=== PATIENT | male | born 1970 | race Hispanic/Latino ===

== ENCOUNTER 2023-01-10 15:12 | Inpatient (IN) | payer MEDICARE ==
[~2023-01-10] VITALS: Ht 170.2 cm; Wt 73.3 kg
[2023-01-10] MEDS ORDERED: ASPIRIN 325MG TAB PO ONE (16:00)
[2023-01-10 16:06] LABS: HEMATOCRIT 46.4 % (42-54); MEAN CORPUSCULAR HEMOGLOBIN 30.5 pg (27.0-33.0); MEAN CORPUSCULAR HGB CONC 31.5 g/dL (32.0-36.0); MEAN CORPUSCULAR VOLUME 96.9 fL (79-99); NUCLEATED RED BLOOD CELLS 2.6 % (0.0-0.19); RED BLOOD CELL COUNT(AUTO) 4.79 MIL/uL (4.50-6.20); RED CELL DISTRIBUTION WIDTH 17.3 % (11.0-15.5); WHITE BLOOD COUNT (AUTO) 9.3 K/uL (4.8-10.8)
[2023-01-10 16:13] LABS: CREATININE 2.1 mg/dL (0.5-1.5); POTASSIUM 5.6 mmol/L (3.5-5.1)
[2023-01-10 16:20] LABS: BILIRUBIN,TOTAL 2.7 mg/dL (0.2-1.0); TOTAL PROTEIN, SERUM 7.7 g/dL (6.0-8.3)
[2023-01-10 16:48] LABS: APPEARANCE,URINE CLEAR (CLEAR); BILIRUBIN,URINE NEGATIVE (NEGATIVE); COLOR,URINE YELLOW (YELLOW); GLUCOSE, URINE (UA) NEGATIVE (NEGATIVE); KETONES,URINE NEGATIVE (NEGATIVE); LEUKOCYTE ESTERASE ,URINE NEGATIVE Leu/uL (NEGATIVE); NITRATE,URINE NEGATIVE (NEGATIVE); OCCULT BLOOD,URINE NEGATIVE (NEGATIVE); PROTEIN,URINE 10 mg/dL (NEGATIVE); UROBILINOGEN,URINE 0.2 mg/dL (0.2-1.0)
[2023-01-10 16:52] LABS: ADD UA MICROSCOPIC YES
[2023-01-10 16:54] LABS: BACTERIA,URINE RARE /HPF (None Seen); RBC,URINE 0-1 /HPF (0-1); SQUAMOUS EPITHELIAL CELL,UR RARE /HPF (0-2)
[2023-01-10 16:57] LABS: ABG HCO3 23.1 mmol/L (21.0-28.0); ABG OXYGEN SATURATION 96.9 % (95.0-99.0); ABG PCO2 34 mmHg (35-48); ABG PH 7.457 (7.35-7.450); PO2, ARTERIAL BG 85.2 mmHg (83.0-108.0); VENT MODE, BG RA (ROOM AIR)
[2023-01-10] MEDS ORDERED: SODIUM ZIRCONIUM CYCLOSILICATE 5 GM POWD.PACK PO SCH (17:00)
[2023-01-10] MEDS ORDERED: SODIUM ZIRCONIUM CYCLOSILICATE 5 GM POWD.PACK PO ONE (19:30)
[2023-01-10] MEDS ORDERED: TORSEMIDE 20 MG TAB PO ONE (19:30)
[2023-01-10] MEDS ORDERED: SPIRONOLACTONE 25 MG TAB PO SCH (21:00)
[2023-01-10] MEDS: ALBUMIN (HUMAN) 25% 50 ML IV SCH (21:35)
[2023-01-10] MEDS ORDERED: HYDROMORPHONE 0.5 MG SYG (0.5MG/0.5ML) IVP ONE (22:00)
[2023-01-11] VITALS (13 sets, daily range): BP systolic 103–123; BP diastolic 72–87; PULSE 69–93; RESP 18; O2SAT 94–95
[2023-01-11] MEDS: ONDANSETRON 4MG INJ IVP PRN (04:02)
[2023-01-11] MEDS ORDERED: SPIRONOLACTONE (04:31)
[2023-01-11] MEDS ORDERED: OMEPRAZOLE (04:31)
[2023-01-11] MEDS ORDERED: ATORVASTATIN (04:31)
[2023-01-11] MEDS ORDERED: AMIODARONE (04:31)
[2023-01-11] MEDS ORDERED: LACTULOSE (04:31)
[2023-01-11] MEDS ORDERED: LEVOTHYROXINE (04:31)
[2023-01-11] MEDS ORDERED: TORSEMIDE (04:31)
[2023-01-11 04:58] LABS: BASOPHILS # (AUTO) 0.02 K/uL (0.00-0.20); BASOPHILS % (AUTO) 0.2 % (0.0-5.0); EOSINOPHILS # (AUTO) 0.02 K/uL (0.00-0.70); EOSINOPHILS % (AUTO) 0.2 % (0.0-8.0); HEMATOCRIT 44.7 % (42-54); IMMATURE GRANULOCYTE ABSOLUTE 0.09 K/uL (0-1); LYMPHOCYTES # (AUTO) 1.1 K/uL (1.0-4.8); LYMPHOCYTES % (AUTO) 10.5 % (21.0-51.0); MEAN CORPUSCULAR HEMOGLOBIN 30.6 pg (27.0-33.0); MEAN CORPUSCULAR HGB CONC 31.3 g/dL (32.0-36.0); MEAN CORPUSCULAR VOLUME 97.6 fL (79-99); MONOCYTES # (AUTO) 1.4 K/uL (0.1-1.0); MONOCYTES % (AUTO) 12.9 % (3.0-13.0); NEUTROPHILS % (AUTO) 75.3 % (40.0-77.0); PLATELET COUNT (AUTO) 197 K/uL (130-400); RED BLOOD CELL COUNT(AUTO) 4.58 MIL/uL (4.50-6.20); RED CELL DISTRIBUTION WIDTH 17.3 % (11.0-15.5); WHITE BLOOD COUNT (AUTO) 10.6 K/uL (4.8-10.8)
[2023-01-11 05:11] LABS: ALBUMIN 3.8 g/dL (3.5-5.0); CREATININE 2.3 mg/dL (0.5-1.5); PHOSPHORUS 6.2 mg/dL (2.5-4.9); POTASSIUM 5.1 mmol/L (3.5-5.1)
[2023-01-11 05:12] LABS: MAGNESIUM 2.4 mg/dL (1.80-2.40); TOTAL PROTEIN, SERUM 7.2 g/dL (6.0-8.3)
[2023-01-11 05:24] LABS: INR 1.31 (0.85-1.15); PROTHROMBIN TIME 14.9 SEC (9.6-11.6)
[2023-01-11 05:25] LABS: PARTIAL THROMBOPLASTIN TIME 27.2 SEC (26.3-35.5)
[2023-01-11 05:30] LABS: B-TYPE NATRIURETIC PEPTIDE 3670 pg/mL (0-100)
[2023-01-11] MEDS: LEVOTHYROXINE 50 MCG TABLET PO SCH (06:24)
[2023-01-11] MEDS: ALBUMIN (HUMAN) 25% 50 ML IV SCH ×3 (06:24→21:53)
[2023-01-11] MEDS: HEPARIN 5,000 UNIT VIAL SQ SCH (06:37)
[2023-01-11] MEDS ORDERED: TORSEMIDE 20 MG TAB PO SCH (09:00)
[2023-01-11] MEDS: FAMOTIDINE 20MG TAB PO SCH (09:21)
[2023-01-11] MEDS: Vitamin B Complex/Vit C/Folic Acid PO SCH (09:22)
[2023-01-11] MEDS: AMIODARONE 200 MG TABLET PO SCH (09:22)
[2023-01-11] MEDS: TAMSULOSIN HCL 0.4 MG CAP.ER.24H PO SCH (09:22)
[2023-01-11] MEDS ORDERED: HYDROMORPHONE 0.5 MG SYG (0.5MG/0.5ML) IVP ONE ×2 (10:00→23:40)
[2023-01-11 14:22] LABS: BODY FLUID RBC 1897 /cu. mm.; BODY FLUID WBC 142 /cu. mm.
[2023-01-11 14:44] LABS: BF LYMPHOCYTE 12 %; BF MACROPHAGE 76; BF MESOTHELIAL 9 %; BF MONOCYTE 1 %; BF TOTAL CELLS COUNTED 100
[2023-01-11 14:45] LABS: TOTAL VOLUME,BODY FLUID 2000 mL
[2023-01-11 14:46] LABS: APPEARANCE BODY FLUID TURBID (CLEAR); COLOR,BODY FLUID YELLOW (LT YELLOW); SPECIMENTYPE,BODY FLUID PLEURAL
[2023-01-11 18:14] LABS: APPEARANCE,URINE CLEAR (CLEAR); BILIRUBIN,URINE NEGATIVE (NEGATIVE); COLOR,URINE YELLOW (YELLOW); GLUCOSE, URINE (UA) NEGATIVE (NEGATIVE); KETONES,URINE NEGATIVE (NEGATIVE); LEUKOCYTE ESTERASE ,URINE NEGATIVE Leu/uL (NEGATIVE); NITRATE,URINE NEGATIVE (NEGATIVE); OCCULT BLOOD,URINE NEGATIVE (NEGATIVE); PROTEIN,URINE NEGATIVE (NEGATIVE); UROBILINOGEN,URINE 0.2 mg/dL (0.2-1.0)
[2023-01-11 18:17] LABS: CHLORIDE,URINE RANDOM 33 mmol/L (110-250); CREATININE,URINE RANDOM 62 mg/dL (30-135); POTASSIUM,URINE RANDOM 30 mmol/L (25-125); SODIUM,URINE RANDOM 42 mmol/l (40-220)
[2023-01-11 18:18] LABS: BACTERIA,URINE RARE /HPF (None Seen); MUCUS,URINE RARE LPF (None Seen); RBC,URINE 0-1 /HPF (0-1); WBC,URINE 0-1 /HPF (0-1)
[2023-01-11] MEDS: TORSEMIDE 20 MG TAB PO SCH (20:29)
[2023-01-12] VITALS (22 sets, daily range): BP systolic 75–108; BP diastolic 40–81; PULSE 55–117; RESP 16–22; O2SAT 94–99
[2023-01-12 03:41] LABS: HEMATOCRIT 38.6 % (42-54); MEAN CORPUSCULAR HEMOGLOBIN 31.1 pg (27.0-33.0); MEAN CORPUSCULAR HGB CONC 33.2 g/dL (32.0-36.0); MEAN CORPUSCULAR VOLUME 93.9 fL (79-99); NUCLEATED RED BLOOD CELLS 3.7 % (0.0-0.19); RED BLOOD CELL COUNT(AUTO) 4.11 MIL/uL (4.50-6.20); RED CELL DISTRIBUTION WIDTH 17.1 % (11.0-15.5); WHITE BLOOD COUNT (AUTO) 9.9 K/uL (4.8-10.8)
[2023-01-12 03:57] LABS: CREATININE 1.9 mg/dL (0.5-1.5); MAGNESIUM 1.9 mg/dL (1.80-2.40); POTASSIUM 4.6 mmol/L (3.5-5.1)
[2023-01-12] MEDS ORDERED: METOPROLOL TARTRATE 1 MG/ML 5ML VIAL IV ONE ×4 (04:29→04:40)
[2023-01-12] MEDS ORDERED: METOPROLOL TARTRATE 1 MG/ML 5ML VIAL IV PRN (04:30)
[2023-01-12 04:31] LABS: ABG BASE EXCESS -2.3 mmol/L (-2.0-3.0); ABG HCO3 20.7 mmol/L (21.0-28.0); ABG OXYGEN SATURATION 99.9 % (95.0-99.0); ABG PCO2 31 mmHg (35-48); ABG PH 7.446 (7.35-7.450); CARBON MONOXIDE 1.9; HHb 0.1; VENT MODE, BG NRB (ROOM AIR)
[2023-01-12 05:30] LABS: CREATINE KINASE, TOTAL 32 U/L (21-232); MYOGLOBIN 69 ng/mL (10-92)
[2023-01-12] MEDS: LEVOTHYROXINE 50 MCG TABLET PO SCH (05:46)
[2023-01-12] MEDS: ALBUMIN (HUMAN) 25% 50 ML IV SCH ×3 (05:46→22:02)
[2023-01-12] MEDS: HEPARIN 5,000 UNIT VIAL SQ SCH ×2 (05:56→17:01)
[2023-01-12] MEDS ORDERED: LACTULOSE 20 GM/30 ML UDCUP PO PRN (09:30)
[2023-01-12] MEDS ORDERED: LACTULOSE 20 GM/30 ML UDCUP PO ONE (10:00)
[2023-01-12] MEDS: Vitamin B Complex/Vit C/Folic Acid PO SCH (10:07)
[2023-01-12] MEDS: FAMOTIDINE 20MG TAB PO SCH (10:07)
[2023-01-12] MEDS: TAMSULOSIN HCL 0.4 MG CAP.ER.24H PO SCH (10:07)
[2023-01-12] MEDS: AMIODARONE 200 MG TABLET PO SCH (10:08)
[2023-01-12] MEDS: TORSEMIDE 20 MG TAB PO SCH ×2 (10:08→20:18)
[2023-01-12] MEDS ORDERED: HYDROMORPHONE 0.5 MG SYG (0.5MG/0.5ML) IVP ONE (11:00)
[2023-01-12] MEDS ORDERED: GLUCAGON 1MG KIT 1 MG ML IM PRN (12:30)
[2023-01-12] MEDS ORDERED: DEXTROSE 50%-WATER 50 ML DISP.SYRIN IV PRN (12:30)
[2023-01-12] MEDS: MAGNESIUM 2GM PREMIX 50ML 50 ML IV PRN (12:59)
[2023-01-12] MEDS ORDERED: PHARMACY COMMUNICATION MISC SCH (13:00)
[2023-01-12] MEDS: SPIRONOLACTONE 25 MG TAB PO SCH (20:18)
[2023-01-12] MEDS ORDERED: ADENOSINE 6MG VIAL IV ONE ×3 (20:43→20:45)
[2023-01-12] MEDS ORDERED: DILTIAZEM 125MG+100 ML NS 125 ML IV PRN (21:00)
[2023-01-12] MEDS ORDERED: AMIODARONE 900MG VIAL 900 MG in DEXTROSE 5%-WATER 200 ML IV PRN (21:00)
[2023-01-12] MEDS ORDERED: AMIODARONE 900MG VIAL 450 MG in DEXTROSE 5%-WATER 250 ML IV PRN (21:00)
[2023-01-12] MEDS ORDERED: AMIODARONE 900MG VIAL 150 MG in DEXTROSE 5%-WATER 100 ML IV PRN (21:00)
[2023-01-12] MEDS ORDERED: AMIODARONE 360MG/200ML D5W(1MG/MIN) IV SCH ×2 (21:30)
[2023-01-12 22:16] LABS: ABG BASE EXCESS -5.4 mmol/L (-2.0-3.0); ABG HCO3 18.2 mmol/L (21.0-28.0); ABG OXYGEN SATURATION 96.8 % (95.0-99.0); ABG PCO2 30 mmHg (35-48); ABG PH 7.396 (7.35-7.450); CARBON MONOXIDE 1.5; HHb 3.1; PO2, ARTERIAL BG 95.7 mmHg (83.0-108.0); VENT MODE, BG NC (ROOM AIR)
[2023-01-12 22:17] LABS: HEMATOCRIT 40.8 % (42-54); MEAN CORPUSCULAR HEMOGLOBIN 31.3 pg (27.0-33.0); MEAN CORPUSCULAR HGB CONC 32.4 g/dL (32.0-36.0); MEAN CORPUSCULAR VOLUME 96.7 fL (79-99); NUCLEATED RED BLOOD CELLS 2.2 % (0.0-0.19); RED BLOOD CELL COUNT(AUTO) 4.22 MIL/uL (4.50-6.20); RED CELL DISTRIBUTION WIDTH 17.5 % (11.0-15.5); WHITE BLOOD COUNT (AUTO) 12.5 K/uL (4.8-10.8)
[2023-01-12] MEDS ORDERED: PHENYLEPHRINE HCL 10 MG/ML 1ML VIAL IV ONE (22:21)
[2023-01-12 22:28] LABS: POTASSIUM 4.5 mmol/L (3.5-5.1)
[2023-01-12 22:32] LABS: ALBUMIN 3.8 g/dL (3.5-5.0); BILIRUBIN,TOTAL 5.2 mg/dL (0.2-1.0); MAGNESIUM 2.3 mg/dL (1.80-2.40); TOTAL PROTEIN, SERUM 6.6 g/dL (6.0-8.3)
[2023-01-12] MEDS: ONDANSETRON 4MG INJ IVP PRN (22:44)
[2023-01-12] MEDS ORDERED: ALBUMIN (HUMAN) 25% 50 ML IV SCH (23:00)
[2023-01-13] VITALS (61 sets, daily range): BP systolic 81–154; BP diastolic 37–71; PULSE 61–83; RESP 7–87; O2SAT 95–98
[2023-01-13] MEDS ORDERED: AMIODARONE 540 MG/D5W 300ML (0.5MG/MIN) IV SCH ×2 (03:00)
[2023-01-13 04:12] LABS: BASOPHILS # (AUTO) 0.03 K/uL (0.00-0.20); BASOPHILS % (AUTO) 0.2 % (0.0-5.0); EOSINOPHILS # (AUTO) 0.01 K/uL (0.00-0.70); EOSINOPHILS % (AUTO) 0.1 % (0.0-8.0); IMMATURE GRANULOCYTE ABSOLUTE 0.26 K/uL (0-1); LYMPHOCYTES # (AUTO) 0.4 K/uL (1.0-4.8); LYMPHOCYTES % (AUTO) 3.2 % (21.0-51.0); MEAN CORPUSCULAR HEMOGLOBIN 30.7 pg (27.0-33.0); MEAN CORPUSCULAR HGB CONC 32.2 g/dL (32.0-36.0); MEAN CORPUSCULAR VOLUME 95.6 fL (79-99); MONOCYTES # (AUTO) 1.4 K/uL (0.1-1.0); MONOCYTES % (AUTO) 10.1 % (3.0-13.0); NEUTROPHILS # (AUTO) 11.6 K/uL (1.8-7.7); NEUTROPHILS % (AUTO) 84.5 % (40.0-77.0); NUCLEATED RED BLOOD CELLS 1.3 % (0.0-0.19); PLATELET COUNT (AUTO) 148 K/uL (130-400); RED BLOOD CELL COUNT(AUTO) 3.87 MIL/uL (4.50-6.20); RED CELL DISTRIBUTION WIDTH 17.4 % (11.0-15.5); WHITE BLOOD COUNT (AUTO) 13.7 K/uL (4.8-10.8)
[2023-01-13 04:23] LABS: CREATININE 1.9 mg/dL (0.5-1.5); MAGNESIUM 2.1 mg/dL (1.80-2.40); PHOSPHORUS 3.5 mg/dL (2.5-4.9); POTASSIUM 4.1 mmol/L (3.5-5.1)
[2023-01-13] MEDS: LEVOTHYROXINE 50 MCG TABLET PO SCH (05:31)
[2023-01-13] MEDS: HEPARIN 5,000 UNIT VIAL SQ SCH ×2 (05:32→16:47)
[2023-01-13] MEDS: ONDANSETRON 4MG INJ IVP PRN (06:02)
[2023-01-13] MEDS: Vitamin B Complex/Vit C/Folic Acid PO SCH (07:48)
[2023-01-13] MEDS: FAMOTIDINE 20MG TAB PO SCH (07:48)
[2023-01-13] MEDS: TORSEMIDE 20 MG TAB PO SCH ×2 (07:48→20:38)
[2023-01-13] MEDS: AMIODARONE 200 MG TABLET PO SCH (07:48)
[2023-01-13] MEDS: VERQUVO 2.5 MG PO SCH (07:49)
[2023-01-13] MEDS: SPIRONOLACTONE 25 MG TAB PO SCH ×2 (07:51→20:38)
[2023-01-13] MEDS: METOPROLOL TARTRATE 25 MG TAB PO SCH ×2 (09:00→21:00)
[2023-01-13] MEDS: TAMSULOSIN HCL 0.4 MG CAP.ER.24H PO SCH (09:00)
[2023-01-13] MEDS: LACTULOSE 20 GM/30 ML UDCUP PO SCH (12:27)
[2023-01-13] MEDS: ALPRAZOLAM 0.5 MG TABLET PO PRN (12:27)
[2023-01-13] MEDS: SODIUM CHLORIDE 1,000 MG TAB PO SCH ×2 (12:27→20:38)
[2023-01-13 13:18] LABS: INR 1.37 (0.85-1.15); PROTHROMBIN TIME 15.6 SEC (9.6-11.6)
[2023-01-13 13:19] LABS: PARTIAL THROMBOPLASTIN TIME 40.1 SEC (26.3-35.5)
[2023-01-13 16:23] LABS: AMPHET/METH SCREEN,URINE NEGATIVE (NEGATIVE); BARBITURATE SCREEN, URINE NEGATIVE (NEGATIVE); BENZODIAZEPINES SCREEN,URINE NEGATIVE (NEGATIVE); CANNABINOID SCREEN,URINE NEGATIVE (NEGATIVE); COCAINE SCREEN,URINE NEGATIVE (NEGATIVE); OPIATE SCREEN,URINE NEGATIVE (NEGATIVE); PHENCYCLIDINE SCREEN,URINE NEGATIVE (NEGATIVE)
[2023-01-13] MEDS: CEFEPIME HCL 2 GM VIAL IVPB SCH (16:47)
[2023-01-13] MEDS: DOXYCYCLINE HYCLATE 100 MG TABLET PO SCH ×2 (16:47→20:39)
[2023-01-13 17:35] LABS: SARS-CoV-2, RNA, NAAT NEGATIVE SARS CoV-2 (NEGATIVE)
[2023-01-13] MEDS: PHENYLEPHRINE HCL 10 MG in 0.9% NACL 250ML 250 ML IV PRN ×2 (18:20→20:18)
[2023-01-14] VITALS (96 sets, daily range): BP systolic 75–119; BP diastolic 27–81; PULSE 59–85; RESP 12–80; O2SAT 97–98
[2023-01-14] MEDS: ACETAMINOPHEN 325 MG TAB PO PRN ×3 (03:56→20:28)
[2023-01-14] MEDS: CEFEPIME HCL 2 GM VIAL IVPB SCH ×2 (03:57→16:18)
[2023-01-14 04:00] LABS: BASOPHILS # (AUTO) 0.03 K/uL (0.00-0.20); BASOPHILS % (AUTO) 0.2 % (0.0-5.0); EOSINOPHILS # (AUTO) 0.07 K/uL (0.00-0.70); EOSINOPHILS % (AUTO) 0.6 % (0.0-8.0); HEMATOCRIT 35.4 % (42-54); IMMATURE GRANULOCYTE ABSOLUTE 0.18 K/uL (0-1); LYMPHOCYTES # (AUTO) 0.5 K/uL (1.0-4.8); LYMPHOCYTES % (AUTO) 3.6 % (21.0-51.0); MEAN CORPUSCULAR HEMOGLOBIN 30.9 pg (27.0-33.0); MEAN CORPUSCULAR HGB CONC 32.8 g/dL (32.0-36.0); MEAN CORPUSCULAR VOLUME 94.1 fL (79-99); MONOCYTES # (AUTO) 1.1 K/uL (0.1-1.0); MONOCYTES % (AUTO) 8.9 % (3.0-13.0); NEUTROPHILS # (AUTO) 10.9 K/uL (1.8-7.7); NEUTROPHILS % (AUTO) 85.3 % (40.0-77.0); NUCLEATED RED BLOOD CELLS 1.1 % (0.0-0.19); PLATELET COUNT (AUTO) 147 K/uL (130-400); RED BLOOD CELL COUNT(AUTO) 3.76 MIL/uL (4.50-6.20); RED CELL DISTRIBUTION WIDTH 17.3 % (11.0-15.5); WHITE BLOOD COUNT (AUTO) 12.7 K/uL (4.8-10.8)
[2023-01-14 04:17] LABS: ALBUMIN 2.8 g/dL (3.5-5.0); BILIRUBIN,TOTAL 3.7 mg/dL (0.2-1.0); CREATININE 1.6 mg/dL (0.5-1.5); MAGNESIUM 2.1 mg/dL (1.80-2.40); PHOSPHORUS 3.2 mg/dL (2.5-4.9); POTASSIUM 3.8 mmol/L (3.5-5.1); TOTAL PROTEIN, SERUM 5.8 g/dL (6.0-8.3)
[2023-01-14] MEDS: HEPARIN 5,000 UNIT VIAL SQ SCH ×2 (05:00→16:19)
[2023-01-14] MEDS: LEVOTHYROXINE 50 MCG TABLET PO SCH (05:37)
[2023-01-14] MEDS: DOXYCYCLINE HYCLATE 100 MG TABLET PO SCH ×2 (08:40→20:16)
[2023-01-14] MEDS: Vitamin B Complex/Vit C/Folic Acid PO SCH (08:41)
[2023-01-14] MEDS: FAMOTIDINE 20MG TAB PO SCH (08:41)
[2023-01-14] MEDS: TAMSULOSIN HCL 0.4 MG CAP.ER.24H PO SCH (08:42)
[2023-01-14] MEDS: SODIUM CHLORIDE 1,000 MG TAB PO SCH ×2 (08:42→20:16)
[2023-01-14] MEDS: PREDNISONE 20 MG TABLET PO SCH (08:42)
[2023-01-14] MEDS: AMIODARONE 200 MG TABLET PO SCH (08:42)
[2023-01-14] MEDS: TORSEMIDE 20 MG TAB PO SCH ×2 (08:42→20:16)
[2023-01-14] MEDS: LACTULOSE 20 GM/30 ML UDCUP PO SCH (08:42)
[2023-01-14] MEDS: SPIRONOLACTONE 25 MG TAB PO SCH ×2 (08:42→20:15)
[2023-01-14] MEDS: VERQUVO 2.5 MG PO SCH (08:43)
[2023-01-14] MEDS: THIAMINE HCL 100 MG/ML 2ML VIAL IVP SCH (08:43)
[2023-01-14] MEDS: METOPROLOL TARTRATE 25 MG TAB PO SCH ×2 (08:53→20:04)
[2023-01-14] MEDS: MIDODRINE HCL 5 MG TABLET PO SCH ×3 (09:42→20:15)
[2023-01-14] MEDS: PHENYLEPHRINE HCL 10 MG in 0.9% NACL 250ML 250 ML IV PRN (15:21)
[2023-01-15] VITALS (35 sets, daily range): BP systolic 72–115; BP diastolic 36–76; PULSE 56–64; RESP 10–30; O2SAT 93–99
[2023-01-15] MEDS: CEFEPIME HCL 2 GM VIAL IVPB SCH ×2 (05:30→16:07)
[2023-01-15] MEDS: LEVOTHYROXINE 50 MCG TABLET PO SCH (05:33)
[2023-01-15] MEDS: HEPARIN 5,000 UNIT VIAL SQ SCH ×2 (05:33→16:09)
[2023-01-15] MEDS: ALPRAZOLAM 0.5 MG TABLET PO PRN (06:06)
[2023-01-15 07:51] LABS: HEMATOCRIT 36.2 % (42-54); MEAN CORPUSCULAR HEMOGLOBIN 30.1 pg (27.0-33.0); MEAN CORPUSCULAR HGB CONC 30.9 g/dL (32.0-36.0); MEAN CORPUSCULAR VOLUME 97.3 fL (79-99); NUCLEATED RED BLOOD CELLS 0.4 % (0.0-0.19); PLATELET COUNT (AUTO) 108 K/uL (130-400); RED BLOOD CELL COUNT(AUTO) 3.72 MIL/uL (4.50-6.20); RED CELL DISTRIBUTION WIDTH 17.7 % (11.0-15.5); WHITE BLOOD COUNT (AUTO) 12.4 K/uL (4.8-10.8)
[2023-01-15 07:57] LABS: CREATININE 1.4 mg/dL (0.5-1.5); MAGNESIUM 1.8 mg/dL (1.80-2.40); POTASSIUM 4.3 mmol/L (3.5-5.1)
[2023-01-15 08:24] LABS: ALBUMIN 2.6 g/dL (3.5-5.0); BILIRUBIN,TOTAL 2.6 mg/dL (0.2-1.0); CREATININE 1.4 mg/dL (0.5-1.5); POTASSIUM 4.3 mmol/L (3.5-5.1); TOTAL PROTEIN, SERUM 5.9 g/dL (6.0-8.3)
[2023-01-15] MEDS: THIAMINE HCL 100 MG/ML 2ML VIAL IVP SCH (08:44)
[2023-01-15] MEDS: SPIRONOLACTONE 25 MG TAB PO SCH ×2 (08:45→20:09)
[2023-01-15] MEDS: PREDNISONE 20 MG TABLET PO SCH (08:45)
[2023-01-15] MEDS: LACTULOSE 20 GM/30 ML UDCUP PO SCH (08:45)
[2023-01-15] MEDS: TORSEMIDE 20 MG TAB PO SCH ×2 (08:46→20:10)
[2023-01-15] MEDS: DOXYCYCLINE HYCLATE 100 MG TABLET PO SCH ×2 (08:46→20:10)
[2023-01-15] MEDS: TAMSULOSIN HCL 0.4 MG CAP.ER.24H PO SCH (08:47)
[2023-01-15] MEDS: METOPROLOL TARTRATE 25 MG TAB PO SCH ×2 (08:47→20:10)
[2023-01-15] MEDS: FAMOTIDINE 20MG TAB PO SCH (08:49)
[2023-01-15] MEDS: AMIODARONE 200 MG TABLET PO SCH (08:49)
[2023-01-15] MEDS: Vitamin B Complex/Vit C/Folic Acid PO SCH (08:49)
[2023-01-15] MEDS: MIDODRINE HCL 5 MG TABLET PO SCH ×3 (08:49→20:11)
[2023-01-15] MEDS: SODIUM CHLORIDE 1,000 MG TAB PO SCH ×2 (08:50→20:10)
[2023-01-15] MEDS: VERQUVO 2.5 MG PO SCH (08:52)
[2023-01-15] MEDS: MAGNESIUM 2GM PREMIX 50ML 50 ML IV PRN (13:33)
[2023-01-16] VITALS (7 sets, daily range): BP systolic 95–144; BP diastolic 66–85; PULSE 61–65; RESP 16–20; O2SAT 98–100
[2023-01-16] MEDS: ALPRAZOLAM 0.5 MG TABLET PO PRN ×2 (02:02→21:20)
[2023-01-16] MEDS: CEFEPIME HCL 2 GM VIAL IVPB SCH ×2 (02:02→16:47)
[2023-01-16 04:39] LABS: BASOPHILS # (AUTO) 0.02 K/uL (0.00-0.20); BASOPHILS % (AUTO) 0.2 % (0.0-5.0); HEMATOCRIT 35.7 % (42-54); IMMATURE GRANULOCYTE ABSOLUTE 0.08 K/uL (0-1); LYMPHOCYTES # (AUTO) 0.3 K/uL (1.0-4.8); LYMPHOCYTES % (AUTO) 2.7 % (21.0-51.0); MEAN CORPUSCULAR HEMOGLOBIN 30.7 pg (27.0-33.0); MEAN CORPUSCULAR HGB CONC 32.5 g/dL (32.0-36.0); MEAN CORPUSCULAR VOLUME 94.4 fL (79-99); MONOCYTES # (AUTO) 0.7 K/uL (0.1-1.0); MONOCYTES % (AUTO) 7.6 % (3.0-13.0); NEUTROPHILS # (AUTO) 8.6 K/uL (1.8-7.7); NEUTROPHILS % (AUTO) 88.7 % (40.0-77.0); NUCLEATED RED BLOOD CELLS 0.8 % (0.0-0.19); PLATELET COUNT (AUTO) 100 K/uL (130-400); RED BLOOD CELL COUNT(AUTO) 3.78 MIL/uL (4.50-6.20); RED CELL DISTRIBUTION WIDTH 17.6 % (11.0-15.5); WHITE BLOOD COUNT (AUTO) 9.7 K/uL (4.8-10.8)
[2023-01-16 04:59] LABS: ALBUMIN 2.8 g/dL (3.5-5.0); BILIRUBIN,TOTAL 1.6 mg/dL (0.2-1.0); CREATININE 1.4 mg/dL (0.5-1.5); MAGNESIUM 2.1 mg/dL (1.80-2.40); POTASSIUM 4.3 mmol/L (3.5-5.1); TOTAL PROTEIN, SERUM 6.4 g/dL (6.0-8.3)
[2023-01-16] MEDS: LEVOTHYROXINE 50 MCG TABLET PO SCH (05:39)
[2023-01-16] MEDS: HEPARIN 5,000 UNIT VIAL SQ SCH ×2 (05:40→16:48)
[2023-01-16] MEDS: ACETAMINOPHEN 325 MG TAB PO PRN (05:40)
[2023-01-16] MEDS: MIDODRINE HCL 5 MG TABLET PO SCH ×3 (08:03→20:58)
[2023-01-16] MEDS: Vitamin B Complex/Vit C/Folic Acid PO SCH (08:03)
[2023-01-16] MEDS: PREDNISONE 20 MG TABLET PO SCH (08:03)
[2023-01-16] MEDS: SPIRONOLACTONE 25 MG TAB PO SCH ×2 (08:03→20:59)
[2023-01-16] MEDS: TORSEMIDE 20 MG TAB PO SCH ×2 (08:03→20:58)
[2023-01-16] MEDS: SODIUM CHLORIDE 1,000 MG TAB PO SCH ×2 (08:03→20:58)
[2023-01-16] MEDS: DOXYCYCLINE HYCLATE 100 MG TABLET PO SCH ×2 (08:04→20:59)
[2023-01-16] MEDS: AMIODARONE 200 MG TABLET PO SCH (08:04)
[2023-01-16] MEDS: TAMSULOSIN HCL 0.4 MG CAP.ER.24H PO SCH (08:05)
[2023-01-16] MEDS: LACTULOSE 20 GM/30 ML UDCUP PO SCH (08:05)
[2023-01-16] MEDS: METOPROLOL TARTRATE 25 MG TAB PO SCH ×2 (08:05→20:59)
[2023-01-16] MEDS: THIAMINE HCL 100 MG/ML 2ML VIAL IVP SCH (08:05)
[2023-01-16] MEDS: FAMOTIDINE 20MG TAB PO SCH (08:05)
[2023-01-16] MEDS: VERQUVO 2.5 MG PO SCH (08:06)
[2023-01-17] VITALS (9 sets, daily range): BP systolic 92–111; BP diastolic 68–82; PULSE 60–68; RESP 14–19; O2SAT 98–100
[2023-01-17] MEDS: CEFEPIME HCL 2 GM VIAL IVPB SCH ×2 (03:39→17:58)
[2023-01-17] MEDS: HEPARIN 5,000 UNIT VIAL SQ SCH ×2 (03:39→17:59)
[2023-01-17] MEDS: LEVOTHYROXINE 50 MCG TABLET PO SCH ×2 (05:49→08:13)
[2023-01-17] MEDS: ACETAMINOPHEN 325 MG TAB PO PRN (05:49)
[2023-01-17] MEDS: LACTULOSE 20 GM/30 ML UDCUP PO SCH (08:10)
[2023-01-17] MEDS: SPIRONOLACTONE 25 MG TAB PO SCH ×2 (08:11→21:47)
[2023-01-17] MEDS: DOXYCYCLINE HYCLATE 100 MG TABLET PO SCH ×2 (08:11→21:47)
[2023-01-17] MEDS: VERQUVO 2.5 MG PO SCH (08:11)
[2023-01-17] MEDS: TORSEMIDE 20 MG TAB PO SCH ×2 (08:12→21:47)
[2023-01-17] MEDS: Vitamin B Complex/Vit C/Folic Acid PO SCH (08:12)
[2023-01-17] MEDS: METOPROLOL TARTRATE 25 MG TAB PO SCH ×2 (08:12→21:47)
[2023-01-17] MEDS: SODIUM CHLORIDE 1,000 MG TAB PO SCH ×2 (08:12→21:47)
[2023-01-17] MEDS: AMIODARONE 200 MG TABLET PO SCH (08:12)
[2023-01-17] MEDS: FAMOTIDINE 20MG TAB PO SCH (08:12)
[2023-01-17] MEDS: TAMSULOSIN HCL 0.4 MG CAP.ER.24H PO SCH (08:12)
[2023-01-17] MEDS: MIDODRINE HCL 5 MG TABLET PO SCH ×3 (08:44→21:47)
[2023-01-17] MEDS: ALPRAZOLAM 0.5 MG TABLET PO PRN (21:59)
[2023-01-18] VITALS (7 sets, daily range): BP systolic 94–114; BP diastolic 59–76; PULSE 67–86; RESP 16–20; O2SAT 98–100
[2023-01-18] MEDS: CEFEPIME HCL 2 GM VIAL IVPB SCH ×2 (03:41→16:58)
[2023-01-18] MEDS: HEPARIN 5,000 UNIT VIAL SQ SCH ×2 (03:42→17:00)
[2023-01-18] MEDS: MIDODRINE HCL 5 MG TABLET PO SCH ×3 (05:25→21:10)
[2023-01-18] MEDS: LEVOTHYROXINE 50 MCG TABLET PO SCH (05:25)
[2023-01-18 05:48] LABS: BASOPHILS # (AUTO) 0.01 K/uL (0.00-0.20); BASOPHILS % (AUTO) 0.2 % (0.0-5.0); EOSINOPHILS # (AUTO) 0.05 K/uL (0.00-0.70); EOSINOPHILS % (AUTO) 0.8 % (0.0-8.0); HEMATOCRIT 38.7 % (42-54); IMMATURE GRANULOCYTE ABSOLUTE 0.08 K/uL (0-1); LYMPHOCYTES # (AUTO) 0.8 K/uL (1.0-4.8); LYMPHOCYTES % (AUTO) 11.5 % (21.0-51.0); MEAN CORPUSCULAR HEMOGLOBIN 30.4 pg (27.0-33.0); MEAN CORPUSCULAR HGB CONC 31.5 g/dL (32.0-36.0); MEAN CORPUSCULAR VOLUME 96.5 fL (79-99); MONOCYTES # (AUTO) 0.8 K/uL (0.1-1.0); NEUTROPHILS # (AUTO) 4.8 K/uL (1.8-7.7); NEUTROPHILS % (AUTO) 74.3 % (40.0-77.0); NUCLEATED RED BLOOD CELLS 0.6 % (0.0-0.19); PLATELET COUNT (AUTO) 122 K/uL (130-400); RED BLOOD CELL COUNT(AUTO) 4.01 MIL/uL (4.50-6.20); WHITE BLOOD COUNT (AUTO) 6.5 K/uL (4.8-10.8)
[2023-01-18 06:00] LABS: CREATININE 1.6 mg/dL (0.5-1.5); POTASSIUM 3.8 mmol/L (3.5-5.1)
[2023-01-18] MEDS: SPIRONOLACTONE 25 MG TAB PO SCH ×2 (08:40→21:10)
[2023-01-18] MEDS: SODIUM CHLORIDE 1,000 MG TAB PO SCH ×2 (08:40→21:10)
[2023-01-18] MEDS: AMIODARONE 200 MG TABLET PO SCH (08:40)
[2023-01-18] MEDS: LACTULOSE 20 GM/30 ML UDCUP PO SCH (08:40)
[2023-01-18] MEDS: TORSEMIDE 20 MG TAB PO SCH ×2 (08:40→21:10)
[2023-01-18] MEDS: TAMSULOSIN HCL 0.4 MG CAP.ER.24H PO SCH (08:40)
[2023-01-18] MEDS: FAMOTIDINE 20MG TAB PO SCH (08:40)
[2023-01-18] MEDS: DOXYCYCLINE HYCLATE 100 MG TABLET PO SCH ×2 (08:40→21:10)
[2023-01-18] MEDS: METOPROLOL TARTRATE 25 MG TAB PO SCH ×2 (08:40→21:10)
[2023-01-18] MEDS: Vitamin B Complex/Vit C/Folic Acid PO SCH (08:40)
[2023-01-18] MEDS: VERQUVO 2.5 MG PO SCH (08:42)
[2023-01-18] MEDS: ACETAMINOPHEN 325 MG TAB PO PRN ×2 (11:08→21:11)
[2023-01-18] MEDS: ALPRAZOLAM 0.5 MG TABLET PO PRN (21:10)
[2023-01-19] VITALS (7 sets, daily range): BP systolic 87–102; BP diastolic 55–68; PULSE 71–88; RESP 16–20; O2SAT 98
[2023-01-19] MEDS: HEPARIN 5,000 UNIT VIAL SQ SCH ×2 (04:29→17:49)
[2023-01-19] MEDS: CEFEPIME HCL 2 GM VIAL IVPB SCH ×2 (04:29→17:48)
[2023-01-19] MEDS: LEVOTHYROXINE 50 MCG TABLET PO SCH (04:29)
[2023-01-19] MEDS: MIDODRINE HCL 5 MG TABLET PO SCH ×3 (04:30→22:20)
[2023-01-19] MEDS: LACTULOSE 20 GM/30 ML UDCUP PO SCH (09:44)
[2023-01-19] MEDS: AMIODARONE 200 MG TABLET PO SCH (09:44)
[2023-01-19] MEDS: FAMOTIDINE 20MG TAB PO SCH (09:45)
[2023-01-19] MEDS: TORSEMIDE 20 MG TAB PO SCH ×2 (09:45→19:43)
[2023-01-19] MEDS: SPIRONOLACTONE 25 MG TAB PO SCH ×2 (09:45→19:43)
[2023-01-19] MEDS: SODIUM CHLORIDE 1,000 MG TAB PO SCH ×2 (09:45→19:43)
[2023-01-19] MEDS: Vitamin B Complex/Vit C/Folic Acid PO SCH (09:45)
[2023-01-19] MEDS: DOXYCYCLINE HYCLATE 100 MG TABLET PO SCH ×2 (09:47→19:43)
[2023-01-19] MEDS: METOPROLOL TARTRATE 25 MG TAB PO SCH ×2 (09:47→19:43)
[2023-01-19] MEDS: VERQUVO 2.5 MG PO SCH (09:47)
[2023-01-19] MEDS: TAMSULOSIN HCL 0.4 MG CAP.ER.24H PO SCH (09:47)
[2023-01-19] MEDS: ACETAMINOPHEN 325 MG TAB PO PRN ×2 (10:52→19:58)
[2023-01-19 12:55] LABS: CREATININE 1.3 mg/dL (0.5-1.5); POTASSIUM 3.6 mmol/L (3.5-5.1)
[2023-01-19] MEDS: NITROGLYCERIN 30 GM TUBE TD SCH (19:37)
[2023-01-19] MEDS: MAGNESIUM 2GM PREMIX 50ML 50 ML IV PRN (20:42)
[2023-01-20] VITALS (10 sets, daily range): BP systolic 84–96; BP diastolic 53–66; PULSE 67–82; RESP 18–20; O2SAT 98
[2023-01-20 03:54] LABS: BASOPHILS # (AUTO) 0.02 K/uL (0.00-0.20); BASOPHILS % (AUTO) 0.2 % (0.0-5.0); EOSINOPHILS # (AUTO) 0.08 K/uL (0.00-0.70); EOSINOPHILS % (AUTO) 0.8 % (0.0-8.0); HEMATOCRIT 38.6 % (42-54); IMMATURE GRANULOCYTE ABSOLUTE 0.17 K/uL (0-1); LYMPHOCYTES # (AUTO) 0.7 K/uL (1.0-4.8); LYMPHOCYTES % (AUTO) 6.4 % (21.0-51.0); MEAN CORPUSCULAR HEMOGLOBIN 30.2 pg (27.0-33.0); MEAN CORPUSCULAR HGB CONC 31.6 g/dL (32.0-36.0); MEAN CORPUSCULAR VOLUME 95.5 fL (79-99); MONOCYTES # (AUTO) 0.8 K/uL (0.1-1.0); MONOCYTES % (AUTO) 7.9 % (3.0-13.0); NEUTROPHILS # (AUTO) 8.4 K/uL (1.8-7.7); PLATELET COUNT (AUTO) 136 K/uL (130-400); RED BLOOD CELL COUNT(AUTO) 4.04 MIL/uL (4.50-6.20); WHITE BLOOD COUNT (AUTO) 10.2 K/uL (4.8-10.8)
[2023-01-20 04:04] LABS: ALBUMIN 2.4 g/dL (3.5-5.0); BILIRUBIN,TOTAL 2.4 mg/dL (0.2-1.0); CREATININE 1.3 mg/dL (0.5-1.5); MAGNESIUM 1.9 mg/dL (1.80-2.40); PHOSPHORUS 2.7 mg/dL (2.5-4.9); POTASSIUM 3.1 mmol/L (3.5-5.1); TOTAL PROTEIN, SERUM 5.8 g/dL (6.0-8.3)
[2023-01-20] MEDS: CEFEPIME HCL 2 GM VIAL IVPB SCH ×2 (04:26→17:42)
[2023-01-20] MEDS: HEPARIN 5,000 UNIT VIAL SQ SCH ×2 (04:33→18:26)
[2023-01-20] MEDS: MIDODRINE HCL 5 MG TABLET PO SCH ×3 (05:08→22:18)
[2023-01-20] MEDS: LEVOTHYROXINE 50 MCG TABLET PO SCH (05:08)
[2023-01-20] MEDS: MAGNESIUM 2GM PREMIX 50ML 50 ML IV PRN (05:09)
[2023-01-20] MEDS ORDERED: POTASSIUM CHLORIDE 20MEQ/100ML 100 ML IV PRN (05:30)
[2023-01-20] MEDS: KCL 20 MEQ ERTAB PO PRN ×2 (05:32→19:57)
[2023-01-20] MEDS: SPIRONOLACTONE 25 MG TAB PO SCH ×2 (07:40→19:57)
[2023-01-20] MEDS: LACTULOSE 20 GM/30 ML UDCUP PO SCH (07:41)
[2023-01-20] MEDS: TAMSULOSIN HCL 0.4 MG CAP.ER.24H PO SCH (07:41)
[2023-01-20] MEDS: DOXYCYCLINE HYCLATE 100 MG TABLET PO SCH ×2 (07:41→19:57)
[2023-01-20] MEDS: Vitamin B Complex/Vit C/Folic Acid PO SCH (07:41)
[2023-01-20] MEDS: ACETAMINOPHEN 325 MG TAB PO PRN ×3 (07:41→20:00)
[2023-01-20] MEDS: TORSEMIDE 20 MG TAB PO SCH ×2 (07:42→19:58)
[2023-01-20] MEDS: FAMOTIDINE 20MG TAB PO SCH (07:42)
[2023-01-20] MEDS: SODIUM CHLORIDE 1,000 MG TAB PO SCH ×2 (07:42→19:57)
[2023-01-20] MEDS: AMIODARONE 200 MG TABLET PO SCH (07:42)
[2023-01-20] MEDS: METOPROLOL TARTRATE 25 MG TAB PO SCH ×2 (07:42→19:58)
[2023-01-20] MEDS: VERQUVO 2.5 MG PO SCH (07:43)
[2023-01-20] MEDS: NITROGLYCERIN 30 GM TUBE TD SCH ×2 (07:45→19:58)
[2023-01-20] MEDS: POTASSIUM CHLORIDE 10% ELIXIR 20 MEQ/15 ML UDCUP PO PRN (07:52)
[2023-01-20] MEDS ORDERED: METO25 PO (15:43)
[2023-01-20] MEDS ORDERED: LEVO50TA4 PO (15:43)
[2023-01-20] MEDS ORDERED: TORS20TA4 PO (15:43)
[2023-01-20] MEDS ORDERED: SPIR25TA6 PO (15:43)
[2023-01-20] MEDS ORDERED: AMIO200T44 PO (15:43)
[2023-01-21] VITALS (7 sets, daily range): BP systolic 83–97; BP diastolic 54–75; PULSE 72–82; RESP 16–18; O2SAT 97–98
[2023-01-21] MEDS: CEFEPIME HCL 2 GM VIAL IVPB SCH ×2 (04:38→14:57)
[2023-01-21] MEDS: HEPARIN 5,000 UNIT VIAL SQ SCH ×2 (04:39→15:05)
[2023-01-21 05:18] LABS: BASOPHILS # (AUTO) 0.03 K/uL (0.00-0.20); BASOPHILS % (AUTO) 0.3 % (0.0-5.0); EOSINOPHILS # (AUTO) 0.04 K/uL (0.00-0.70); EOSINOPHILS % (AUTO) 0.4 % (0.0-8.0); IMMATURE GRANULOCYTE ABSOLUTE 0.15 K/uL (0-1); LYMPHOCYTES # (AUTO) 0.8 K/uL (1.0-4.8); MEAN CORPUSCULAR HEMOGLOBIN 30.5 pg (27.0-33.0); MEAN CORPUSCULAR HGB CONC 32.8 g/dL (32.0-36.0); MONOCYTES # (AUTO) 0.6 K/uL (0.1-1.0); MONOCYTES % (AUTO) 6.9 % (3.0-13.0); NEUTROPHILS # (AUTO) 7.5 K/uL (1.8-7.7); NEUTROPHILS % (AUTO) 81.8 % (40.0-77.0); PLATELET COUNT (AUTO) 186 K/uL (130-400); RED BLOOD CELL COUNT(AUTO) 3.87 MIL/uL (4.50-6.20); WHITE BLOOD COUNT (AUTO) 9.1 K/uL (4.8-10.8)
[2023-01-21] MEDS ORDERED: VERI5TAB PO (05:29)
[2023-01-21 05:36] LABS: ALBUMIN 2.5 g/dL (3.5-5.0); BILIRUBIN,TOTAL 1.9 mg/dL (0.2-1.0); CREATININE 1.2 mg/dL (0.5-1.5); MAGNESIUM 2.2 mg/dL (1.80-2.40); POTASSIUM 3.9 mmol/L (3.5-5.1); TOTAL PROTEIN, SERUM 6.2 g/dL (6.0-8.3)
[2023-01-21] MEDS: LEVOTHYROXINE 50 MCG TABLET PO SCH (05:56)
[2023-01-21] MEDS: MIDODRINE HCL 5 MG TABLET PO SCH ×3 (05:59→22:05)
[2023-01-21] MEDS: FAMOTIDINE 20MG TAB PO SCH (07:36)
[2023-01-21] MEDS: METOPROLOL TARTRATE 25 MG TAB PO SCH ×2 (07:36→20:38)
[2023-01-21] MEDS: SODIUM CHLORIDE 1,000 MG TAB PO SCH ×2 (07:36→20:37)
[2023-01-21] MEDS: AMIODARONE 200 MG TABLET PO SCH (07:37)
[2023-01-21] MEDS: SPIRONOLACTONE 25 MG TAB PO SCH ×2 (07:37→20:37)
[2023-01-21] MEDS: TORSEMIDE 20 MG TAB PO SCH ×2 (07:37→20:38)
[2023-01-21] MEDS: DOXYCYCLINE HYCLATE 100 MG TABLET PO SCH ×2 (07:37→20:37)
[2023-01-21] MEDS: LACTULOSE 20 GM/30 ML UDCUP PO SCH (07:37)
[2023-01-21] MEDS: Vitamin B Complex/Vit C/Folic Acid PO SCH (07:37)
[2023-01-21] MEDS: TAMSULOSIN HCL 0.4 MG CAP.ER.24H PO SCH (07:39)
[2023-01-21] MEDS: NITROGLYCERIN 30 GM TUBE TD SCH ×2 (07:40→20:40)
[2023-01-21] MEDS: VERQUVO 2.5 MG PO SCH (07:45)
[2023-01-21] MEDS: ACETAMINOPHEN 325 MG TAB PO PRN ×2 (08:47→20:34)
[2023-01-21] MEDS ORDERED: ACET-2079 PO (12:05)
[2023-01-21] MEDS: ACETAMINOPHEN WITH CODEINE 1 TAB TAB PO PRN (14:58)
[2023-01-22 03:46] VITALS: BP 99/69; PULSE 74; RESP 16
[2023-01-22 03:49] LABS: BASOPHILS # (AUTO) 0.03 K/uL (0.00-0.20); BASOPHILS % (AUTO) 0.3 % (0.0-5.0); EOSINOPHILS # (AUTO) 0.04 K/uL (0.00-0.70); EOSINOPHILS % (AUTO) 0.5 % (0.0-8.0); HEMATOCRIT 35.6 % (42-54); IMMATURE GRANULOCYTE ABSOLUTE 0.11 K/uL (0-1); LYMPHOCYTES # (AUTO) 0.9 K/uL (1.0-4.8); LYMPHOCYTES % (AUTO) 10.1 % (21.0-51.0); MEAN CORPUSCULAR HEMOGLOBIN 30.1 pg (27.0-33.0); MEAN CORPUSCULAR HGB CONC 31.2 g/dL (32.0-36.0); MEAN CORPUSCULAR VOLUME 96.5 fL (79-99); MONOCYTES # (AUTO) 0.8 K/uL (0.1-1.0); MONOCYTES % (AUTO) 8.6 % (3.0-13.0); NEUTROPHILS % (AUTO) 79.3 % (40.0-77.0); PLATELET COUNT (AUTO) 193 K/uL (130-400); RED BLOOD CELL COUNT(AUTO) 3.69 MIL/uL (4.50-6.20); RED CELL DISTRIBUTION WIDTH 17.9 % (11.0-15.5); WHITE BLOOD COUNT (AUTO) 8.9 K/uL (4.8-10.8)
[2023-01-22 04:09] LABS: ALBUMIN 2.5 g/dL (3.5-5.0); BILIRUBIN,TOTAL 2.2 mg/dL (0.2-1.0); CREATININE 1.2 mg/dL (0.5-1.5); TOTAL PROTEIN, SERUM 6.1 g/dL (6.0-8.3)
[2023-01-22] MEDS: CEFEPIME HCL 2 GM VIAL IVPB SCH ×2 (04:19→15:29)
[2023-01-22] MEDS: HEPARIN 5,000 UNIT VIAL SQ SCH ×2 (04:20→16:10)
[2023-01-22] MEDS: MIDODRINE HCL 5 MG TABLET PO SCH ×3 (05:41→21:23)
[2023-01-22] MEDS: LEVOTHYROXINE 50 MCG TABLET PO SCH (05:41)
[2023-01-22 08:00] VITALS: BP 94/68; PULSE 69; RESP 18; O2SAT 95
[2023-01-22] MEDS: LACTULOSE 20 GM/30 ML UDCUP PO SCH (10:15)
[2023-01-22] MEDS: AMIODARONE 200 MG TABLET PO SCH (10:15)
[2023-01-22] MEDS: TORSEMIDE 20 MG TAB PO SCH ×2 (10:15→21:22)
[2023-01-22] MEDS: Vitamin B Complex/Vit C/Folic Acid PO SCH (10:15)
[2023-01-22] MEDS: METOPROLOL TARTRATE 25 MG TAB PO SCH ×2 (10:15→21:23)
[2023-01-22] MEDS: DOXYCYCLINE HYCLATE 100 MG TABLET PO SCH ×2 (10:15→21:23)
[2023-01-22] MEDS: ACETAMINOPHEN WITH CODEINE 1 TAB TAB PO PRN ×2 (10:16→15:29)
[2023-01-22] MEDS: SODIUM CHLORIDE 1,000 MG TAB PO SCH ×2 (10:16→21:23)
[2023-01-22] MEDS: TAMSULOSIN HCL 0.4 MG CAP.ER.24H PO SCH (10:16)
[2023-01-22] MEDS: SPIRONOLACTONE 25 MG TAB PO SCH ×2 (10:16→21:22)
[2023-01-22] MEDS: FAMOTIDINE 20MG TAB PO SCH (10:16)
[2023-01-22] MEDS: NITROGLYCERIN 30 GM TUBE TD SCH ×2 (10:17→21:30)
[2023-01-22] MEDS: VERQUVO 2.5 MG PO SCH ×2 (10:17→10:21)
[2023-01-22 12:00] VITALS: BP 91/69; PULSE 70; RESP 18
[2023-01-22 16:00] VITALS: BP 97/69; PULSE 75; RESP 18
[2023-01-22 17:03] LABS: APPEARANCE,URINE CLEAR (CLEAR); BILIRUBIN,URINE NEGATIVE (NEGATIVE); COLOR,URINE YELLOW (YELLOW); GLUCOSE, URINE (UA) NEGATIVE (NEGATIVE); KETONES,URINE NEGATIVE (NEGATIVE); LEUKOCYTE ESTERASE ,URINE NEGATIVE Leu/uL (NEGATIVE); NITRATE,URINE NEGATIVE (NEGATIVE); PROTEIN,URINE 30 mg/dL (NEGATIVE); UROBILINOGEN,URINE 0.2 mg/dL (0.2-1.0)
[2023-01-22 17:05] LABS: ADD UA MICROSCOPIC YES
[2023-01-22 17:06] LABS: WBC,URINE 0-1 /HPF (0-1)
[2023-01-22 19:40] VITALS: O2SAT 97
[2023-01-22 20:00] VITALS: BP 95/60; PULSE 74; RESP 20
[2023-01-22] MEDS: SACUBITRIL/VALSARTAN 1 EACH TABLET PO SCH (21:23)
[2023-01-23] VITALS (7 sets, daily range): BP systolic 88–99; BP diastolic 56–69; PULSE 72–84; RESP 16–20; O2SAT 98
[2023-01-23 04:01] LABS: HEMATOCRIT 34.5 % (42-54); MEAN CORPUSCULAR HEMOGLOBIN 29.8 pg (27.0-33.0); MEAN CORPUSCULAR HGB CONC 31.3 g/dL (32.0-36.0); RED BLOOD CELL COUNT(AUTO) 3.63 MIL/uL (4.50-6.20); RED CELL DISTRIBUTION WIDTH 17.6 % (11.0-15.5); WHITE BLOOD COUNT (AUTO) 8.2 K/uL (4.8-10.8)
[2023-01-23] MEDS: CEFEPIME HCL 2 GM VIAL IVPB SCH ×2 (04:10→15:43)
[2023-01-23] MEDS: HEPARIN 5,000 UNIT VIAL SQ SCH ×2 (04:16→17:20)
[2023-01-23 04:26] LABS: ALBUMIN 2.6 g/dL (3.5-5.0); BILIRUBIN,TOTAL 2.2 mg/dL (0.2-1.0); CREATININE 1.2 mg/dL (0.5-1.5); MAGNESIUM 1.8 mg/dL (1.80-2.40); PHOSPHORUS 2.9 mg/dL (2.5-4.9); POTASSIUM 3.7 mmol/L (3.5-5.1); TOTAL PROTEIN, SERUM 6.3 g/dL (6.0-8.3); URIC ACID 4.6 mg/dL (2.6-7.2)
[2023-01-23] MEDS ORDERED: MAGNESIUM 2GM PREMIX 50ML 50 ML IV PRN (05:00)
[2023-01-23] MEDS: LEVOTHYROXINE 50 MCG TABLET PO SCH (05:53)
[2023-01-23] MEDS: MIDODRINE HCL 5 MG TABLET PO SCH ×3 (05:53→20:24)
[2023-01-23] MEDS: MAGNESIUM 2GM PREMIX 50ML 50 ML IV PRN (06:09)
[2023-01-23] MEDS: LACTULOSE 20 GM/30 ML UDCUP PO SCH (08:31)
[2023-01-23] MEDS: SPIRONOLACTONE 25 MG TAB PO SCH ×2 (08:32→19:52)
[2023-01-23] MEDS: TAMSULOSIN HCL 0.4 MG CAP.ER.24H PO SCH (08:33)
[2023-01-23] MEDS: SACUBITRIL/VALSARTAN 1 EACH TABLET PO SCH ×2 (08:33→19:53)
[2023-01-23] MEDS: TORSEMIDE 20 MG TAB PO SCH ×2 (08:33→19:53)
[2023-01-23] MEDS: DOXYCYCLINE HYCLATE 100 MG TABLET PO SCH (08:33)
[2023-01-23] MEDS: METOPROLOL TARTRATE 25 MG TAB PO SCH ×2 (08:34→19:54)
[2023-01-23] MEDS: FAMOTIDINE 20MG TAB PO SCH (08:35)
[2023-01-23] MEDS: Vitamin B Complex/Vit C/Folic Acid PO SCH (08:35)
[2023-01-23] MEDS: AMIODARONE 200 MG TABLET PO SCH (08:35)
[2023-01-23] MEDS: SODIUM CHLORIDE 1,000 MG TAB PO SCH ×2 (08:35→19:54)
[2023-01-23] MEDS: ACETAMINOPHEN 325 MG TAB PO PRN (08:36)
[2023-01-23] MEDS: NITROGLYCERIN 30 GM TUBE TD SCH ×2 (08:40→19:56)
[2023-01-23] MEDS: VERQUVO 2.5 MG PO SCH (08:41)
[2023-01-23] MEDS: ACETAMINOPHEN WITH CODEINE 1 TAB TAB PO PRN (17:12)
[2023-01-24] VITALS (9 sets, daily range): BP systolic 87–100; BP diastolic 50–61; PULSE 72–84; RESP 16–20; O2SAT 100
[2023-01-24] MEDS: CEFEPIME HCL 2 GM VIAL IVPB SCH ×2 (03:53→17:27)
[2023-01-24] MEDS: HEPARIN 5,000 UNIT VIAL SQ SCH ×2 (04:17→17:30)
[2023-01-24] MEDS: MIDODRINE HCL 5 MG TABLET PO SCH ×3 (05:04→22:03)
[2023-01-24] MEDS: LEVOTHYROXINE 50 MCG TABLET PO SCH (05:04)
[2023-01-24] MEDS: ACETAMINOPHEN 325 MG TAB PO PRN ×3 (05:05→19:58)
[2023-01-24 05:27] LABS: ALBUMIN 2.4 g/dL (3.5-5.0); BILIRUBIN,TOTAL 1.8 mg/dL (0.2-1.0); CREATININE 1.2 mg/dL (0.5-1.5); MAGNESIUM 2.1 mg/dL (1.80-2.40); PHOSPHORUS 2.6 mg/dL (2.5-4.9); POTASSIUM 3.8 mmol/L (3.5-5.1)
[2023-01-24 05:34] LABS: HEMATOCRIT 34.9 % (42-54); MEAN CORPUSCULAR HEMOGLOBIN 30.1 pg (27.0-33.0); MEAN CORPUSCULAR HGB CONC 32.4 g/dL (32.0-36.0); MEAN CORPUSCULAR VOLUME 93.1 fL (79-99); RED BLOOD CELL COUNT(AUTO) 3.75 MIL/uL (4.50-6.20); RED CELL DISTRIBUTION WIDTH 17.6 % (11.0-15.5); WHITE BLOOD COUNT (AUTO) 9.2 K/uL (4.8-10.8)
[2023-01-24] MEDS: VERQUVO 2.5 MG PO SCH (09:00)
[2023-01-24] MEDS: LACTULOSE 20 GM/30 ML UDCUP PO SCH (10:08)
[2023-01-24] MEDS: FAMOTIDINE 20MG TAB PO SCH (10:09)
[2023-01-24] MEDS: TAMSULOSIN HCL 0.4 MG CAP.ER.24H PO SCH (10:09)
[2023-01-24] MEDS: SACUBITRIL/VALSARTAN 1 EACH TABLET PO SCH ×2 (10:09→19:53)
[2023-01-24] MEDS: SODIUM CHLORIDE 1,000 MG TAB PO SCH ×2 (10:09→19:52)
[2023-01-24] MEDS: Vitamin B Complex/Vit C/Folic Acid PO SCH (10:09)
[2023-01-24] MEDS: AMIODARONE 200 MG TABLET PO SCH (10:10)
[2023-01-24] MEDS: TORSEMIDE 20 MG TAB PO SCH ×2 (10:11→19:51)
[2023-01-24] MEDS: SPIRONOLACTONE 25 MG TAB PO SCH ×2 (10:11→19:51)
[2023-01-24] MEDS: METOPROLOL TARTRATE 25 MG TAB PO SCH ×2 (10:11→19:52)
[2023-01-24] MEDS: NITROGLYCERIN 30 GM TUBE TD SCH ×2 (10:13→19:59)
[2023-01-25 03:35] VITALS: BP 99/63; PULSE 72; RESP 20
[2023-01-25 04:02] LABS: BASOPHILS # (AUTO) 0.06 K/uL (0.00-0.20); BASOPHILS % (AUTO) 0.7 % (0.0-5.0); EOSINOPHILS # (AUTO) 0.04 K/uL (0.00-0.70); EOSINOPHILS % (AUTO) 0.5 % (0.0-8.0); HEMATOCRIT 37.6 % (42-54); IMMATURE GRANULOCYTE ABSOLUTE 0.05 K/uL (0-1); LYMPHOCYTES # (AUTO) 0.8 K/uL (1.0-4.8); LYMPHOCYTES % (AUTO) 9.2 % (21.0-51.0); MEAN CORPUSCULAR HEMOGLOBIN 29.8 pg (27.0-33.0); MEAN CORPUSCULAR HGB CONC 31.9 g/dL (32.0-36.0); MEAN CORPUSCULAR VOLUME 93.3 fL (79-99); MONOCYTES % (AUTO) 12.3 % (3.0-13.0); NEUTROPHILS # (AUTO) 6.3 K/uL (1.8-7.7); NEUTROPHILS % (AUTO) 76.7 % (40.0-77.0); PLATELET COUNT (AUTO) 197 K/uL (130-400); RED BLOOD CELL COUNT(AUTO) 4.03 MIL/uL (4.50-6.20); RED CELL DISTRIBUTION WIDTH 17.5 % (11.0-15.5); WHITE BLOOD COUNT (AUTO) 8.3 K/uL (4.8-10.8)
[2023-01-25] MEDS: HEPARIN 5,000 UNIT VIAL SQ SCH ×2 (04:57→15:43)
[2023-01-25] MEDS: CEFEPIME HCL 2 GM VIAL IVPB SCH (04:57)
[2023-01-25 05:13] LABS: CREATININE 1.3 mg/dL (0.5-1.5); MAGNESIUM 1.9 mg/dL (1.80-2.40); PHOSPHORUS 3.2 mg/dL (2.5-4.9); POTASSIUM 3.1 mmol/L (3.5-5.1)
[2023-01-25] MEDS: MIDODRINE HCL 5 MG TABLET PO SCH ×2 (05:47→15:40)
[2023-01-25] MEDS: LEVOTHYROXINE 50 MCG TABLET PO SCH (05:47)
[2023-01-25] MEDS: KCL 20 MEQ ERTAB PO PRN ×3 (05:54→15:51)
[2023-01-25 07:16] VITALS: BP 94/65; PULSE 54; RESP 18
[2023-01-25 08:00] VITALS: O2SAT 100
[2023-01-25] MEDS: FAMOTIDINE 20MG TAB PO SCH (09:37)
[2023-01-25] MEDS: Vitamin B Complex/Vit C/Folic Acid PO SCH (09:37)
[2023-01-25] MEDS: LACTULOSE 20 GM/30 ML UDCUP PO SCH (09:37)
[2023-01-25] MEDS: TAMSULOSIN HCL 0.4 MG CAP.ER.24H PO SCH (09:37)
[2023-01-25] MEDS: METOPROLOL TARTRATE 25 MG TAB PO SCH (09:37)
[2023-01-25] MEDS: MAGNESIUM 2GM PREMIX 50ML 50 ML IV PRN (09:37)
[2023-01-25] MEDS: SPIRONOLACTONE 25 MG TAB PO SCH (09:37)
[2023-01-25] MEDS: SODIUM CHLORIDE 1,000 MG TAB PO SCH (09:37)
[2023-01-25] MEDS: TORSEMIDE 20 MG TAB PO SCH (09:37)
[2023-01-25] MEDS: SACUBITRIL/VALSARTAN 1 EACH TABLET PO SCH (09:37)
[2023-01-25] MEDS: VERQUVO 2.5 MG PO SCH (09:42)
[2023-01-25] MEDS: ACETAMINOPHEN 325 MG TAB PO PRN (09:42)
[2023-01-25] MEDS: NITROGLYCERIN 30 GM TUBE TD SCH (09:44)
[2023-01-25] MEDS: AMIODARONE 200 MG TABLET PO SCH (09:49)
[2023-01-25 10:51] VITALS: BP 90/56; PULSE 74; RESP 19
[2023-01-25 17:00] VITALS: BP 83/57; PULSE 77; RESP 18
[2023-01-25] MEDS: ACETAMINOPHEN WITH CODEINE 1 TAB TAB PO PRN (17:23)
[2023-01-26] MEDS ORDERED: CEFTRIAXONE 1G VIAL IVPB SCH (09:00)
== END 2023-01-25 19:47 | DRG 871 ==
LOC: EDH 15:12 → EDHIP 16:31 → 2AH 01-11 03:01 → 2BH 01-12 21:25 → 4AH 01-15 10:05
PROVIDERS: ADMIT Hospitalist; ATTEND Hospitalist
PROC: 0W993ZZ Drainage of Right Pleural Cavity, Percutaneous Approach (ICD-10-PCS; 2023-01-11)
PROC: 02HV33Z Insertion of Infusion Device into Superior Vena Cava, Percutaneous Approach (ICD-10-PCS; principal; 2023-01-14)
DX: A41.9 Sepsis, unspecified organism (principal); I21.A1 Myocardial infarction type 2; R65.21 Severe sepsis with septic shock; J18.9 Pneumonia, unspecified organism; K76.7 Hepatorenal syndrome; J96.01 Acute respiratory failure with hypoxia; I50.43 Acute on chronic combined systolic (congestive) and diastolic (congestive) heart failure; J90 Pleural effusion, not elsewhere classified; I13.0 Hypertensive heart and chronic kidney disease with heart failure and stage 1 through stage 4 chronic kidney disease, or unspecified chronic kidney disease; I42.9 Cardiomyopathy, unspecified; N17.9 Acute kidney failure, unspecified; E87.1 Hypo-osmolality and hyponatremia; I47.1 Supraventricular tachycardia; I47.20 Ventricular tachycardia, unspecified; J98.11 Atelectasis; R18.8 Other ascites; J45.909 Unspecified asthma, uncomplicated; N18.9 Chronic kidney disease, unspecified; E87.5 Hyperkalemia; K74.60 Unspecified cirrhosis of liver; D64.9 Anemia, unspecified; E78.00 Pure hypercholesterolemia, unspecified; F10.20 Alcohol dependence, uncomplicated; I37.1 Nonrheumatic pulmonary valve insufficiency; I48.91 Unspecified atrial fibrillation; M10.9 Gout, unspecified; Z79.82 Long term (current) use of aspirin; Z79.899 Other long term (current) drug therapy; Z82.49 Family history of ischemic heart disease and other diseases of the circulatory system; Z86.73 Personal history of transient ischemic attack (TIA), and cerebral infarction without residual deficits; Z91.199 Patient's noncompliance with other medical treatment and regimen due to unspecified reason; Z95.810 Presence of automatic (implantable) cardiac defibrillator; Z20.822 Contact with and (suspected) exposure to COVID-19; I44.7 Left bundle-branch block, unspecified
CPT/HCPCS: 32555; 36415; 36600; 71045; 71047; 76700; 80048; 80053; 80305; 81001; 82140; 82435; 82436; 82550; 82570; 82803; 82947; 82948; 83605; 83735; 83874; 83880; 83935; 84100; 84132; 84133; 84145; 84295; 84300; 84443; 84484; 84550; 85018; 85025; 85027; 85610; 85730; 86140; 87040; 87071; 87205; 87635; 89051; 93005; 93306; 93308; 93356; 93925; 93926; 93970; 93971; 93979; 97039; C1729; C1751; C1894; G0378; J0153; J0282; J0692; J1170; J1644; J2371; J2405; J3411; J3475; J3490; J7050; J7060; J7070; P9047; 73560